=== PATIENT | female | born 1955 | race Two or more races ===

== ENCOUNTER 2020-01-11 10:26 | Outpatient (CLI) | payer OTHER | END 2020-01-11 10:40 | disposition home or self-care (01) | LOC: MAMO-SONO 10:26 | PROVIDERS: ATTEND Obstetrics & Gynecology | DX: Z12.31 Encounter for screening mammogram for malignant neoplasm of breast (principal); N64.2 Atrophy of breast; N85.8 Other specified noninflammatory disorders of uterus; R10.2 Pelvic and perineal pain ==

== ENCOUNTER 2020-01-11 12:39 | Outpatient (CLI) | payer OTHER | END 2020-01-11 12:45 | disposition home or self-care (01) | LOC: NUCLEAR 12:39 | PROVIDERS: ATTEND Obstetrics & Gynecology | DX: M85.89 Other specified disorders of bone density and structure, multiple sites (principal) ==

== ENCOUNTER 2020-03-30 10:01 | Outpatient (CLI) | payer OTHER | END 2020-03-30 10:11 | disposition home or self-care (01) | LOC: MRI 10:01 | PROVIDERS: ATTEND Specialist | DX: I65.8 Occlusion and stenosis of other precerebral arteries (principal); I67.7 Cerebral arteritis, not elsewhere classified; M45.4 Ankylosing spondylitis of thoracic region | CPT/HCPCS: 70544 ==

== ENCOUNTER 2021-10-28 08:56 | Outpatient (CLI) | payer OTHER | END 2021-10-28 09:04 | disposition home or self-care (01) | LOC: MAMO-SONO 08:56 | PROVIDERS: ATTEND Internal Medicine Endocrinology, Diabetes & Metabolism | DX: N64.4 Mastodynia (principal); E04.1 Nontoxic single thyroid nodule ==